=== PATIENT | male | born 1990 | race Caucasian/White ===

== ENCOUNTER 2017-03-26 08:24 | Emergency (ER) | payer SELFPAY ==
[~2017-03-26] VITALS: Ht 172.7 cm; Wt 88.9 kg
[2017-03-26 08:47] VITALS: BP 146/80
--- NOTE | 2017-03-26 08:53 | PHYS DOC ---
Adult General Chief Complaint Chief Complaint: UPPER EXTREMITY PAIN HPI HPI Patient is a 26 year old male who presents with pain to his right shoulder and upper arm. 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 He denies any acute injury to his arm shoulder or back, but states he woke up around 2 AM with pain in his shoulder and radiating into his upper arm. He denies any drug allergies and states that he is in good health otherwise. Review of Systems Review of Systems Constitutional: Denies fever or chills [] HENT: Denies nasal congestion or sore throat [] Respiratory: Denies cough or shortness of breath [] Cardiovascular: No additional information not addressed in HPI [] : Denies dysuria or hematuria [] Musculoskeletal: See history of present illness Integument: Denies rash or skin lesions [] Neurologic: Denies headache, focal weakness or sensory changes [] Current Medications Current Medications Current Medications Medications (Trade) Dose Ordered Sig/Naomy Start Time Stop Time Status Last Admin Dose Admin Ketorolac Tromethamine (Toradol Im) 60 mg 1X ONCE 03/26/17 09:15 03/26/17 09:16 DC 03/26/17 09:13 60 MG Allergies Allergies Allergies Coded Allergies Type Severity Reaction Last Updated Verified No Known Drug Allergies 03/26/17 No Physical Exam Physical Exam Constitutional: Well developed, well nourished, no acute distress, non-toxic appearance. [] Neck: Normal range of motion, no tenderness, supple, no stridor. [] Cardiovascular:Heart rate regular rhythm, no murmur [] Lungs & Thorax: Bilateral breath sounds clear to auscultation [] Skin: Warm, dry, no erythema, no rash. [] Extremities: Tenderness to right shoulder and right upper arm with palpation. There is no swelling or ecchymosis noted. Pulses and sensation are intact distally. Nurse Sitter are intact bilaterally. Neurologic: Alert and oriented X 3, normal motor function, normal sensory function, no focal deficits noted. [] Psychologic: Affect normal, judgement normal, mood normal. [] Current Patient Data Vital Signs Vital Signs Date Time Temp Pulse Resp B/P (MAP) Pulse Ox O2 Delivery O2 Flow Rate FiO2 03/26/17 08:47 98.2 60 18 146/80 (102) 100 Room Air 98.2 EKG EKG [] Radiology/Procedures Radiology/Procedures []PATIENT: PACO DODGE ACCOUNT: [id number] : 1990 LOCATION: ER AGE: 26 SEX: M EXAM STATUS: PRE ER ORD. PHYSICIAN: ROSENDO LAWS APRN REASON: acute pain to right shoulder PROCEDURE: SHOULDER 2+V RIGHT Indication: Right shoulder pain and numbness beginning this morning with no known injury. Technique: 3 views of the right shoulder are submitted for review. No comparison is available. Findings: There is no fracture or dislocation. There is no osseous lesion. Impression: Negative for fracture. DICTATED and SIGNED BY: CHIP WOODRUFF MD DATE: 03/26/17909 Course & Med Decision Making Course & Med Decision Making Pertinent Labs and Imaging studies reviewed. (See chart for details) [] 1. Myalgia 2. Tendinitis Patient is to follow up with his primary care provider in 2 days if not improving or return to the ED if worsening. He was given Toradol in the emergency department and states that his pain was starting to relieve. The patient was discharged with Flexeril and [place] for pain. Patient was instructed not to drive while taking narcotic pain medication. He was also instructed not to use any heavy machinery. Dragon Disclaimer Dragon Disclaimer This electronic medical record was generated, in whole or in part, using a voice recognition dictation system. Departure Departure Scripts Cyclobenzaprine Hcl (CYCLOBENZAPRINE HCL) 10 Mg Tablet 1 TAB PO QHS Y for INFLAMMATION for 7 Days, #7 TAB Prov: ROSENDO ALWS APRN 03/26/17 Hydrocodone Bit/Acetaminophen (HYDROCODONE-APAP 10-300) 1 Each Tablet 1 TAB PO PRN Q6HRS Y for PAIN, #10 TAB 0 Refills Prov: ROSENDO LAWS APRN 03/26/17 ROSENDO LAWS APRN Mar 26, 2017 08:53
--- NOTE | 2017-03-26 09:13 | RAD ---
Indication: Right shoulder pain and numbness beginning this morning with no known injury. Technique: 3 views of the right shoulder are submitted for review. No comparison is available. Findings: There is no fracture or dislocation. There is no osseous lesion. Impression: Negative for fracture.
[2017-03-26] MEDS ORDERED: KETOROLAC TROMETHAMINE 60 MG/2 ML INJ. IM ONE (09:15)
[2017-03-26] MEDS ORDERED: CYCL10TA2 PO ×2 (09:46→09:52)
[2017-03-26] MEDS ORDERED: HYDR-2161 PO (09:47)
== END 2017-03-26 09:58 | disposition home or self-care (01) ==
LOC: ER 08:24
DX: M77.9 Enthesopathy, unspecified (principal); M79.1 Myalgia
CPT/HCPCS: 73030; 96372; 99284; J1885

== ENCOUNTER 2018-05-27 03:19 | Emergency (ER) | payer SELFPAY ==
[~2018-05-27] VITALS: Ht 172.7 cm; Wt 93.0 kg
[~2018-05-27 03:19] MED LIST: CYCL10TA2 PO; HYDR-2161 PO
[2018-05-27 03:25] VITALS: BP 142/85
--- NOTE | 2018-05-27 03:36 | PHYS DOC ---
Past Medical History Past Medical History: No Pertinent History Past Surgical History: No Surgical History Alcohol Use: None Drug Use: None Adult General Chief Complaint Chief Complaint: ABDOMINAL PAIN HPI HPI Patient is a 28 year old man who presents with abdominal pain, vomiting and diarrhea Patient had onset of diarrhea and vomiting 2 days ago. Since then, he's had intermittent episodes of vomiting. His diarrhea stopped 2 days ago. Patient denies any fevers. He's had episode of emesis this morning around 3 AM prior to going to work. While working, he had 2 more episodes of emesis and was sent to the emergency department for evaluation. This morning he noted onset of lower abdominal cramping. He's had he denies any fevers difficulty urinating. He denies any hematemesis or blood in his stool. No medications. He smokes cigarettes and denies marijuana use Review of Systems Review of Systems Constitutional: Denies fever or chills Eyes: Denies change in visual acuity, redness, or eye pain HENT: Denies nasal congestion or sore throat Respiratory: Denies cough or shortness of breath Cardiovascular: Denies chest pain or palpitations GI: with abdominal pain, nausea, vomiting and diarrhea, no bloody stools : Denies dysuria or hematuria Musculoskeletal: Denies back pain or joint pain Integument: Denies rash or skin lesions Neurologic: Denies headache, focal weakness or sensory changes Endocrine: Denies polyuria or polydipsia All other systems were reviewed and found to be within normal limits, except as documented in this note. Current Medications Current Medications Current Medications Medications (Trade) Dose Ordered Sig/Naomy Start Time Stop Time Status Last Admin Dose Admin Ondansetron HCl (Zofran) 4 mg 1X ONCE 05/27/18 03:45 05/27/18 03:46 DC 05/27/18 03:45 4 MG Sodium Chloride 1,000 ml @ 1,000 mls/hr 1X ONCE 05/27/18 03:45 05/27/18 04:44 DC 05/27/18 03:45 1,000 MLS/HR Allergies Allergies Allergies Coded Allergies Type Severity Reaction Last Updated Verified No Known Drug Allergies 03/26/17 No Physical Exam Physical Exam Constitutional: Well developed, well nourished, no acute distress, non-toxic appearance. HENT: Normocephalic, atraumatic, bilateral external ears normal, oropharynx moist, no oral exudates, nose normal. Eyes: PERRLA, EOMI, conjunctiva normal, no discharge. Neck: Normal range of motion, no tenderness, supple, no stridor. Cardiovascular:Heart rate regular rhythm, no murmur Lungs & Thorax: Bilateral breath sounds clear to auscultation Abdomen: Bowel sounds normal, soft, with diffuse lower abdominal tenderness, no masses, no pulsatile masses. Skin: Warm, dry, no erythema, no rash. Back: No tenderness, no CVA tenderness. Extremities: No tenderness, no cyanosis, no clubbing, ROM intact, no edema. Neurologic: Alert and oriented X 3, normal motor function, normal sensory function, no focal deficits noted. Psychologic: Affect normal, judgement normal, mood normal. Current Patient Data Vital Signs Vital Signs Date Time Temp Pulse Resp B/P (MAP) Pulse Ox O2 Delivery O2 Flow Rate FiO2 05/27/18 03:25 98.1 88 20 142/85 (104) 99 Room Air 98.1 Lab Values Laboratory Tests Test 05/27/18 03:34 05/27/18 05:40 White Blood Count 8.9 x10^3/uL (4.0-11.0) Red Blood Count 4.97 x10^6/uL (4.30-5.70) Hemoglobin 17.0 g/dL (13.0-17.5) Hematocrit 47.7 % (39.0-53.0) Mean Corpuscular Volume 96 fL (79-100) Mean Corpuscular Hemoglobin 34 pg (25-35) Mean Corpuscular Hemoglobin Concent 36 g/dL (31-37) Red Cell Distribution Width 12.6 % (11.5-14.5) Platelet Count 268 x10^3/uL (140-400) Neutrophils (%) (Auto) 50 % (31-73) Lymphocytes (%) (Auto) 34 % (24-48) Monocytes (%) (Auto) 8 % (0-9) Eosinophils (%) (Auto) 6 % (0-3) H Basophils (%) (Auto) 1 % (0-3) Neutrophils # (Auto) 4.5 x10^3uL (1.8-7.7) Lymphocytes # (Auto) 3.1 x10^3/uL (1.0-4.8) Monocytes # (Auto) 0.7 x10^3/uL (0.0-1.1) Eosinophils # (Auto) 0.5 x10^3/uL (0.0-0.7) Basophils # (Auto) 0.1 x10^3/uL (0.0-0.2) Segmented Neutrophils % 55 % (35-66) Lymphocytes % 39 % (24-48) Monocytes % 3 % (0-10) Eosinophils % 3 % (0-5) Platelet Estimate Adequate (ADEQUATE) Sodium Level 139 mmol/L (136-145) Potassium Level 3.6 mmol/L (3.5-5.1) Chloride Level 103 mmol/L (98-107) Carbon Dioxide Level 25 mmol/L (21-32) Anion Gap 11 (6-14) Blood Urea Nitrogen 13 mg/dL (8-26) Creatinine 1.0 mg/dL (0.7-1.3) Estimated GFR (Cockcroft-Gault) 88.3 BUN/Creatinine Ratio 13 (6-20) Glucose Level 132 mg/dL (70-99) H Calcium Level 8.9 mg/dL (8.5-10.1) Total Bilirubin 0.8 mg/dL (0.2-1.0) Aspartate Amino Transferase (AST) 28 U/L (15-37) Alanine Aminotransferase (ALT) 54 U/L (16-63) Alkaline Phosphatase 79 U/L (46-116) Total Protein 7.8 g/dL (6.4-8.2) Albumin 4.3 g/dL (3.4-5.0) Albumin/Globulin Ratio 1.2 (1.0-1.7) Lipase 113 U/L (73-393) Urine Collection Type Void Urine Color Yellow Urine Clarity Clear Urine pH 5.5 Urine Specific [place] 1.020 Urine Protein Negative mg/dL (NEG-TRACE) Urine Glucose (UA) Negative mg/dL (NEG) Urine Ketones (Stick) Negative mg/dL (NEG) Urine Blood Negative (NEG) Urine Nitrite Negative (NEG) Urine Bilirubin Negative (NEG) Urine Urobilinogen Dipstick 1.0 mg/dL (0.2 mg/dL) Urine Leukocyte Esterase Negative (NEG) Urine RBC 0 /HPF (0-2) Urine WBC 1-4 /HPF (0-4) Urine Squamous Epithelial Cells Few /LPF Urine Bacteria Moderate /HPF (0-FEW) Urine Mucus Mod /LPF Laboratory Tests 05/27/18 03:34 Laboratory Tests 05/27/18 03:34 Microbiology 05/27/18 Urine Culture - Final, Complete 05/27/18 Urine Culture Result 1 (THOR) - Final, Complete EKG EKG [] Radiology/Procedures Radiology/Procedures [] Course & Med Decision Making Course & Med Decision Making Pertinent Labs and Imaging studies reviewed. (See chart for details) Emergency Department Course Patient presents with abdominal pain, vomiting and diarrhea DDx-enteritis, appendicitis, diverticulitis, 06:30 The patient was stable in the ED improved after IV NS and Zofran with complete resolution of his pain. He had no RLQ tenderness on re-examination. Labs were unremarkable. U/A with bacteria, sent for culture. Patient was given appendicitis precautions and advised to return to the ED if he develops recurrent pain, fevers or vomiting. Dragon Disclaimer Dragon Disclaimer This electronic medical record was generated, in whole or in part, using a voice recognition dictation system. Departure Departure Impression: Primary Impression: Abdominal pain, vomiting, and diarrhea Disposition: 01 HOME, SELF-CARE Condition: STABLE Referrals: NO PCP (PCP) JENNIFER PRASAD MD Follow-up in 2 days for further evaluation Patient Instructions: Abdominal Pain, Diarrhea, [id number], Diet for Diarrhea , Adult, Nausea and Vomiting, [id number] Scripts Ondansetron (ZOFRAN ODT) 4 Mg Tab.rapdis 1 TAB SL Q8HRS, #10 TAB Prov: ARMAND MERCHANT MD 05/27/18 ARMAND MERCHANT MD May 27, 2018 03:36
[2018-05-27] MEDS ORDERED: IV NORMAL SALINE 1000ML BAG 1,000 ML IV ONE (03:45)
[2018-05-27] MEDS ORDERED: ONDANSETRON PF 4 MG/2 ML VIAL. IV ONE (03:45)
[2018-05-27 03:48] LABS: BASO # 0.1 x10^3/uL (0.0-0.2); BASO % 1 % (0-3); EOS # 0.5 x10^3/uL (0.0-0.7); EOS % 6 % (0-3); HEMATOCRIT 47.7 % (39.0-53.0); LYMPH # 3.1 x10^3/uL (1.0-4.8); LYMPH % 34 % (24-48); MEAN CORPUSCULAR HEMOGLOBIN 34 pg (25-35); MEAN CORPUSCULAR HGB CONC 36 g/dL (31-37); MEAN CORPUSCULAR VOLUME 96 fL (79-100); MONO # 0.7 x10^3/uL (0.0-1.1); MONO % 8 % (0-9); NEUT # 4.5 x10^3uL (1.8-7.7); NEUT % 50 % (31-73); PLATELET COUNT 268 x10^3/uL (140-400); RED BLOOD COUNT 4.97 x10^6/uL (4.30-5.70); RED CELL DISTRIBUTION WIDTH 12.6 % (11.5-14.5); WHITE BLOOD COUNT 8.9 x10^3/uL (4.0-11.0)
[2018-05-27 03:50] LABS: CALCIUM 8.9 mg/dL (8.5-10.1); GFR 88.3; POTASSIUM 3.6 mmol/L (3.5-5.1)
[2018-05-27 03:56] LABS: ALBUMIN 4.3 g/dL (3.4-5.0); ALBUMIN/GLOBULIN RATIO 1.2 (1.0-1.7); TOTAL BILIRUBIN 0.8 mg/dL (0.2-1.0); TOTAL PROTEIN 7.8 g/dL (6.4-8.2)
[2018-05-27 05:12] LABS: % EOS 3 % (0-5); % LYMPHS 39 % (24-48); % MONOS 3 % (0-10); % SEGS 55 % (35-66); PLT ESTIMATE ADEQUATE (ADEQUATE)
[2018-05-27 06:41] LABS: BILIRUBIN,URINE NEGATIVE (NEG); CLARITY,URINE CLEAR; COLOR,URINE YELLOW; PH,URINE 5.5; PROTEIN,URINE NEGATIVE (NEG-TRACE)
[2018-05-27 06:42] LABS: BACTERIA,URINE MODERATE /HPF (0-FEW); NITRITE,URINE NEGATIVE (NEG); RBC,URINE 0 /HPF (0-2); SQUAMOUS EPITHELIAL CELL,UR FEW /LPF
[2018-05-27] MEDS ORDERED: ONDA4TAB10 SL (06:51)
== END 2018-05-27 07:00 | disposition home or self-care (01) ==
LOC: ER 03:19
DX: R10.32 Left lower quadrant pain (principal); R10.31 Right lower quadrant pain; R11.2 Nausea with vomiting, unspecified; R19.7 Diarrhea, unspecified
CPT/HCPCS: 36415; 80053; 81001; 83690; 85007; 85025; 87086; 96361; 96374; 99284; J2405; J7030

== ENCOUNTER 2019-02-02 09:46 | Emergency (ER) | payer SELFPAY ==
[~2019-02-02] VITALS: Ht 172.7 cm; Wt 79.4 kg
[~2019-02-02 09:46] MED LIST changes: +ONDA4TAB10 SL
[2019-02-02 09:49] VITALS: BP 143/63
[2019-02-02] MEDS ORDERED: DOCUSATE 100 MG/10 ML SOLUTION. AS STA (09:53)
--- NOTE | 2019-02-02 09:58 | PHYS DOC ---
Past Medical History Past Medical History: No Pertinent History Past Surgical History: No Surgical History Alcohol Use: None Drug Use: None Adult General Chief Complaint Chief Complaint: FOREIGNBODY EAR HPI HPI Patient is a 28 year old male with no significant medical history who presents to the ED today complaining of a sensation of foreign body to the left ear. Symptoms began last night. He states he feels his left ear is muffled. He states he thinks he could've left a Q-tip in the ear because this began after cleaning his left ear with a Q-tip. Review of Systems Review of Systems Constitutional: Denies fever or chills [] HENT: Foreign body to the left ear Denies nasal congestion or sore throat [] Musculoskeletal: Denies back pain or joint pain [] Integument: Denies rash or skin lesions [] Neurologic: Denies headache, focal weakness or sensory changes [] All other systems were reviewed and found to be within normal limits, except as documented in this note. Current Medications Current Medications Current Medications Medications (Trade) Dose Ordered Sig/Naomy Start Time Stop Time Status Last Admin Dose Admin Docusate Sodium (Colace Solution) 100 mg 1X STAT 02/02/19 09:53 02/02/19 09:55 DC 02/02/19 10:15 100 MG Allergies Allergies Allergies Coded Allergies Type Severity Reaction Last Updated Verified No Known Drug Allergies 03/26/17 No Physical Exam Physical Exam Constitutional: Well developed, well nourished, no acute distress, non-toxic appearance. [] HENT: Normocephalic, atraumatic, bilateral external ears normal, oropharynx moist, no oral exudates, nose normal. Left ear canal is impacted with cerumen, TM cannot be visualized Skin: Warm, dry, no erythema, no rash. [] Back: No tenderness, no CVA tenderness. [] Extremities: No tenderness, no cyanosis, no clubbing, ROM intact, no edema. [] Neurologic: Alert and oriented X 3, normal motor function, normal sensory function, no focal deficits noted. [] Psychologic: Affect normal, judgement normal, mood normal. [] Current Patient Data Vital Signs Vital Signs Date Time Temp Pulse Resp B/P (MAP) Pulse Ox O2 Delivery O2 Flow Rate FiO2 02/02/19 09:49 98.0 59 16 143/63 (89) 98 Room Air 98.0 EKG EKG [] Radiology/Procedures Radiology/Procedures [] Course & Med Decision Making Course & Med Decision Making Pertinent Labs and Imaging studies reviewed. (See chart for details) This is a 28-year-old male patient presenting to the ED today complaining of sensation of a foreign object in the left ear, initially he thought this was a Q-tip that he used last night that could've dislodged in the left ear. On physical exam the left ear canal is impacted with cerumen. Colace was used ear was flushed and ear wax was successfully removed. Patient was discharged to home. Follow-up with ENT. Instructed not to use Q-tips to clean his ears. Dragon Disclaimer Dragon Disclaimer This electronic medical record was generated, in whole or in part, using a voice recognition dictation system. Departure Departure Impression: Primary Impression: Cerumen impaction Disposition: 01 HOME, SELF-CARE Condition: STABLE Referrals: NO PCP (PCP) ROBERT NASH MD follow up in 1 week Patient Instructions: Cerumen Impaction Additional Instructions: Your have ear wax to the left ear which was removed in the Ed. Please do not use Qtip to clean your ears. Follow up with the provided ENT as needed in 1-2 weeks Problem Qualifiers Primary Impression: Cerumen impaction Laterality: right Qualified Codes: H61.21 - Impacted cerumen, right ear ESTEBAN AVILA APRN Feb 02, 2019 09:58
== END 2019-02-02 10:44 | disposition home or self-care (01) ==
LOC: ER 09:46
DX: H61.22 Impacted cerumen, left ear (principal)
CPT/HCPCS: 69209; 99282